=== PATIENT | male | born 1975 | race Caucasian/White ===

== ENCOUNTER 2018-04-04 22:30 | Emergency (ER) | payer BC ==
--- NOTE | 2018-04-04 23:36 | EDPHYS ---
Physician Documentation [facility] Name: Dwight Ochoa IV Age: 42 yrs Sex: Male : 1975 Arrival Date: 04/04/2018 Time: 22:31 Bed 26 Private MD: ED Physician John Seth HPI: 04/04 23:18 This 42 yrs old Male presents to ER via Ambulatory with complaints of Blood cp Pressure Problem. 23:19 The patient has elevated blood pressure and discovered this at home, with a home cp device. Associated signs and symptoms: Pertinent negatives: chest pain, dizziness, headache, lightheadedness, visual changes, vomiting, weakness. Severity of symptoms: At its worst the blood pressure was 190 mm Hg. Patient reports history of HTN and noticing elevated blood pressure this morning on home device. Patient concerned that recent change in medication from Bystolic to metoprolol is not working. Historical: - Allergies: 22:44 No Known Allergies; fc - Home Meds: 22:44 metoprolol tartrate 25 mg Oral tab 1 tab once daily [Active]; lisinopril 10 mg Oral tab fc 1 tab once daily [Active]; rosuvastatin 40 mg oral tab 1 tab once daily [Active]; - PMHx: 22:44 Hypertension; High Cholesterol; fc - PSHx: 22:44 None; fc - Immunization history:: Last tetanus immunization: up to date. - Social history:: Smoking status: Patient uses tobacco products, Vap. - Ebola Screening: : Patient negative for fever greater than or equal to 101.5 degrees Fahrenheit, and additional compatible Ebola Virus Disease symptoms Patient denies exposure to infectious person Patient denies travel to an Ebola-affected area in the 21 days before illness onset. ROS: 23:22 Constitutional: Negative for body aches, chills, fever, poor PO intake. cp 23:22 Eyes: Negative for injury, pain, redness, and discharge. cp 23:22 ENT: Negative for drainage from ear(s), ear pain, sore throat, difficulty swallowing, difficulty handling secretions. 23:22 Cardiovascular: Negative for chest pain, edema, palpitations. 23:22 Respiratory: Negative for cough, shortness of breath, wheezing. 23:22 Abdomen/GI: Negative for abdominal pain, nausea, vomiting, and diarrhea, black/tarry stool, rectal bleeding. 23:22 Back: Negative for pain at rest, pain with movement, radiated pain. 23:22 Skin: Negative for cellulitis, rash. 23:22 Neuro: Negative for altered mental status, dizziness, headache, weakness. 23:22 Psych: Positive for anxiety. 23:22 All other systems are negative. Exam: 23:35 Head/Face: Normocephalic, atraumatic. Eyes: Pupils equal round and reactive to light, cp extra-ocular motions intact. Lids and lashes normal. Conjunctiva and sclera are non-icteric and not injected. Cornea within normal limits. Periorbital areas with no swelling, redness, or edema. ENT: Nares patent. No nasal discharge, no septal abnormalities noted. Tympanic membranes are normal and external auditory canals are clear. Oropharynx with no redness, swelling, or masses, exudates, or evidence of obstruction, uvula midline. Mucous membranes moist. Chest/axilla: Normal chest wall appearance and motion. Nontender with no deformity. No lesions are appreciated. Cardiovascular: Regular rate and rhythm with a normal S1 and S2. No gallops, murmurs, or rubs. Normal PMI, no JVD. No pulse deficits. Respiratory: Lungs have equal breath sounds bilaterally, clear to auscultation and percussion. No rales, rhonchi or wheezes noted. No increased work of breathing, no retractions or nasal flaring. Abdomen/GI: Soft, non-tender, with normal bowel sounds. No distension or tympany. No guarding or rebound. No evidence of tenderness throughout. Skin: Warm, dry with normal turgor. Normal color with no rashes, no lesions, and no evidence of cellulitis. Neuro: Awake and alert, GCS 15, oriented to person, place, time, and situation. Cranial nerves II-XII grossly intact. Motor strength 5/5 in all extremities. Sensory grossly intact. Cerebellar exam normal. Normal gait. 23:35 Constitutional: The patient appears in no acute distress, alert, awake, non-diaphoretic, non-toxic, well developed, well nourished. Vital Signs: 22:44 BP 143 / 115 RA Sitting (auto/reg); Pulse 77; Resp 20; Temp 98.7(O); Pulse Ox 99% on fc R/A; Weight 84.82 kg (R); Height 5 ft. 9 in. (175.26 cm) (R); Pain 0/10; 22:46 BP 159 / 106 LA Sitting (auto/reg); Pulse 81; fc 23:30 BP 126 / 80; Pulse 63; Resp 16; rk2 22:44 Body Mass Index 27.61 (84.82 kg, 175.26 cm) fc MDM: 22:55 Patient medically screened. cp 23:30 Differential diagnosis: hypertensive crisis, Malignant HTN, anxiety. cp 23:34 Data reviewed: vital signs, nurses notes, and as a result, I will discharge patient. cp Counseling: I had a detailed discussion with the patient and/or guardian regarding: the historical points, exam findings, and any diagnostic results supporting the discharge/admit diagnosis, the need for outpatient follow up, a family practitioner. Administered Medications: No medications were administered Disposition: 04/04/18 23:35 Discharged to Home. Impression: Hypertensive heart disease. - Condition is Stable. - Discharge Instructions: Hypertension, How to Take Your Blood Pressure, [id number], Managing Your High Blood Pressure. - Medication Reconciliation Form, Thank You Letter, Antibiotic Education, Prescription Opioid Use form. - Follow up: Private Physician; When: 2 - 3 days; Reason: Recheck today's complaints. - Problem is an ongoing problem. - Symptoms have improved. Addendum: 04/06/2018 13:14 Co-signature as Attending Physician, John Seth MD Available for consultation at p s1 all times. . Signatures: Emma Cardoso RN RN Noel Gudino PA PA cp John Seth MD MD [facility] Heydi Davila RN RN rk2 Corrections: (The following items were deleted from the chart) 04/04 23:45 23:35 04/04/2018 23:35 Discharged to Home. Impression: Hypertensive heart disease. rk2 Condition is Stable. Forms are Medication Reconciliation Form, Thank You Letter, Antibiotic Education, Prescription Opioid Use. Follow up: Private Physician; When: 2 - 3 days; Reason: Recheck today's complaints. Problem is an ongoing problem. Symptoms have improved. cp
--- NOTE | 2018-04-04 23:36 | ER ---
Nurse's Notes [facility] Name: Dwight Ochoa IV Age: 42 yrs Sex: Male : 1975 Arrival Date: 04/04/2018 Time: 22:31 Bed 26 Private MD: Diagnosis: Hypertensive heart disease Presentation: 04/04 22:38 Presenting complaint: Patient states: that his bp at home was high. EMS was even at his home this am and he was told that he was having an anxiety attack. Tonight at home his bp was high so he came to ER. BP was 190/95. Two weeks ago he was changed from Bystolic to Metoprolol. Transition of care: patient was not received from another setting of care. Onset of symptoms was April 04, 2018. Risk Assessment: Do you want to hurt yourself or someone else? Patient reports no desire to harm self or others. Initial Sepsis Screen: Does the patient meet any 2 criteria? No. Patient's initial sepsis screen is negative. Does the patient have a suspected source of infection? No. Patient's initial sepsis screen is negative. Care prior to arrival: None. 22:38 Method Of Arrival: Ambulatory 22:38 Acuity: GINETTE 3 Triage Assessment: 22:44 General: Appears comfortable, slender, Behavior is cooperative, appropriate for age, fc anxious. Pain: Denies pain. EENT: No deficits noted. Neuro: Level of Consciousness is awake, alert, obeys commands, Oriented to person, place, time, situation. Cardiovascular: Denies chest pain. Respiratory: No deficits noted. GI: No deficits noted. : No deficits noted. Derm: Skin is pink, warm \T\ dry. Musculoskeletal: Circulation, motion, and sensation intact. Capillary refill < 3 seconds, Range of motion: intact in all extremities. Historical: - Allergies: 22:44 No Known Allergies; fc - Home Meds: 22:44 metoprolol tartrate 25 mg Oral tab 1 tab once daily [Active]; lisinopril 10 mg Oral tab fc 1 tab once daily [Active]; rosuvastatin 40 mg oral tab 1 tab once daily [Active]; - PMHx: 22:44 Hypertension; High Cholesterol; fc - PSHx: 22:44 None; fc - Immunization history:: Last tetanus immunization: up to date. - Social history:: Smoking status: Patient uses tobacco products, Vap. - Ebola Screening: : Patient negative for fever greater than or equal to 101.5 degrees Fahrenheit, and additional compatible Ebola Virus Disease symptoms Patient denies exposure to infectious person Patient denies travel to an Ebola-affected area in the 21 days before illness onset. Screenin:32 Abuse screen: Denies threats or abuse. Nutritional screening: No deficits noted. rk2 Tuberculosis screening: No symptoms or risk factors identified. Fall Risk None identified. Assessment: 23:31 General: Appears in no apparent distress. slender, well groomed, well developed, well rk2 nourished, Behavior is calm, cooperative, appropriate for age. Neuro: Level of Consciousness is alert, obeys commands, Oriented to person, place, time, situation. Respiratory: Airway Respiratory effort is even, unlabored, Respiratory pattern is regular, symmetrical. Derm: Skin is pink, warm \T\ dry. Vital Signs: 22:44 BP 143 / 115 RA Sitting (auto/reg); Pulse 77; Resp 20; Temp 98.7(O); Pulse Ox 99% on fc R/A; Weight 84.82 kg (R); Height 5 ft. 9 in. (175.26 cm) (R); Pain 0/10; 22:46 BP 159 / 106 LA Sitting (auto/reg); Pulse 81; fc 23:30 BP 126 / 80; Pulse 63; Resp 16; rk2 22:44 Body Mass Index 27.61 (84.82 kg, 175.26 cm) ED Course: 22:31 Patient arrived in ED. am2 22:42 Triage completed. fc 22:46 Arm band placed on Patient placed in an exam room, on a stretcher. fc 22:47 Heydi Davila, RN is Primary Nurse. rk2 22:55 Noel Gudino PA is PHCP. cp 22:55 John Seth MD is Attending Physician. cp 23:32 Patient has correct armband on for positive identification. Placed in gown. Call light rk2 in reach. 23:44 No provider procedures requiring assistance completed. Patient did not have IV access rk2 during this emergency room visit. Administered Medications: No medications were administered Outcome: 23:35 Discharge ordered by . cp 23:44 Discharged to home ambulatory. rk2 23:44 Condition: good 23:44 Discharge instructions given to patient. 23:45 Patient left the ED. rk2 Signatures: Emma Cardoso RN RN fc Noel Gudino PA PA cp Moreno, Amanda am2 Kidder, Rhonda, RN RN rk2
== END 2018-04-04 23:45 | disposition home or self-care (01) ==
LOC: ER 22:30
DX: I11.9 Hypertensive heart disease without heart failure (principal); F17.290 Nicotine dependence, other tobacco product, uncomplicated
CPT/HCPCS: 99281